=== PATIENT | female | born 1930 | race Caucasian/White ===

== ENCOUNTER 2017-01-06 09:37 | Inpatient (IN) | payer OTHER ==
[~2017-01-06] VITALS: Ht 152.4 cm; Wt 65.3 kg
[~2017-01-06 09:37] MED LIST: ANT12.5 PO; ASPIR 8181 MG PO; ATENOLOL50 MG PO; CLONIDINE HCL0.1 MG PO; HUMULIN 70/303 ML SQ; LOSARTAN POTASS1 TAB PO; LYRICA50 M1 PO; MAC100 PO; MECLIZINE HYDRO25 M1 PO; MEVACOR40 MG PO; NOR10T PO; [UNRECOGNIZED DRUG - OTHER] PO
[2017-01-06 10:51] LABS: BASOPHIL % 0.5 % (0-2); PLATELET COUNT 199 x10^3mcL (130-400); RED CELL DISTRIBUTION WIDTH 13.6 % (11.5-14.5)
[2017-01-06 11:04] LABS: CALCIUM 9.3 mg/dL (8.5-10.1); CHLORIDE SERUM 102 mmol/L (98-107); CREATININE SERUM 0.7 mg/dL (0.6-1.0); GLUCOSE SERUM 167 mg/dL (74-106); POTASSIUM SERUM 3.9 mmol/L (3.5-5.1); SODIUM SERUM 138 mmol/L (136-145)
[2017-01-06 11:08] LABS: UA SPECIFIC GRAVITY 1.015 (1.005-1.035); microscopic required? YES; urine erythrocyte TRACE (NEGATIVE)
[2017-01-06 11:16] LABS: ALBUMIN 3.4 g/dL (3.4-5.0); ALKALINE PHOSPHATASE 70 U/L (46-116); ALT/SGPT 23 U/L (14-59); AST/SGOT 24 U/L (15-37); TOTAL PROTEIN, SERUM 6.8 g/dL (6.4-8.2)
[2017-01-06 11:20] LABS: CK-MB 2.3 ng/mL (0-3.6)
[2017-01-06] MEDS ORDERED: LOSARTAN POTASS1 TA6 PO (12:35)
[2017-01-06] MEDS ORDERED: GABAPENTIN100 M2 (12:36)
[2017-01-06] MEDS ORDERED: CARVEDILOL3.125 M1 PO (12:36)
[2017-01-06 14:52] LABS: T3 TOTAL 1.11 ng/mL
[2017-01-06 15:11] VITALS: BP 173/63
[2017-01-06 15:50] LABS: FREE T4 1.43 ng/dL (0.76-1.46); FREE THYROXINE INDEX 4.2 ug/dL (1.4-4.5); T4(THYROXINE) 11.3 ug/dL (4.7-13.3)
[2017-01-06 15:55] LABS: MAGNESIUM 1.7 mg/dL (1.8-2.4); PHOSPHOROUS 3.7 mg/dL (2.5-4.9)
[2017-01-06 16:02] LABS: CHOLESTEROL/HDL RATIO 1.6
[2017-01-06 21:04] VITALS: BP 125/71
[2017-01-07 04:19] LABS: CALCIUM 8.7 mg/dL (8.5-10.1); CHLORIDE SERUM 102 mmol/L (98-107); CREATININE SERUM 0.7 mg/dL (0.6-1.0); GLUCOSE SERUM 121 mg/dL (74-106); MAGNESIUM 2.1 mg/dL (1.8-2.4); PHOSPHOROUS 3.7 mg/dL (2.5-4.9); POTASSIUM SERUM 3.6 mmol/L (3.5-5.1); SODIUM SERUM 137 mmol/L (136-145)
[2017-01-07 04:38] LABS: BASOPHIL % 0.5 % (0-2); PLATELET COUNT 190 x10^3mcL (130-400); RED CELL DISTRIBUTION WIDTH 12.9 % (11.5-14.5)
[2017-01-07 05:15] VITALS: BP 116/56
[2017-01-07 09:30] VITALS: BP 165/53
[2017-01-07 13:55] VITALS: BP 161/49
[2017-01-07 18:02] VITALS: BP 158/47
[2017-01-07 22:32] VITALS: BP 138/49
[2017-01-08 05:34] VITALS: BP 156/48
[2017-01-08 07:16] LABS: BASOPHIL % 0.4 % (0-2); PLATELET COUNT 185 x10^3mcL (130-400); RED CELL DISTRIBUTION WIDTH 13.8 % (11.5-14.5)
[2017-01-08 07:24] LABS: CALCIUM 8.9 mg/dL (8.5-10.1); CARBON DIOXIDE 25.3 mmol/L (21-32); CHLORIDE SERUM 104 mmol/L (98-107); CREATININE SERUM 0.6 mg/dL (0.6-1.0); GLUCOSE SERUM 90 mg/dL (74-106); POTASSIUM SERUM 3.7 mmol/L (3.5-5.1); SODIUM SERUM 138 mmol/L (136-145)
[2017-01-08 09:42] VITALS: BP 141/63
[2017-01-08] MEDS ORDERED: LAC PO (09:47)
[2017-01-08] MEDS ORDERED: BACTRIM DS1 TAB PO (09:49)
== END 2017-01-08 16:43 | disposition home or self-care (01) | DRG 637 ==
LOC: ED 09:37 → DU 13:34
PROVIDERS: Emergency Medicine; ADMIT Family Medicine
DX: E11.649 Type 2 diabetes mellitus with hypoglycemia without coma (principal); I50.43 Acute on chronic combined systolic (congestive) and diastolic (congestive) heart failure; N39.0 Urinary tract infection, site not specified; D68.69 Other thrombophilia; N17.0 Acute kidney failure with tubular necrosis; E11.51 Type 2 diabetes mellitus with diabetic peripheral angiopathy without gangrene; E11.65 Type 2 diabetes mellitus with hyperglycemia; E83.42 Hypomagnesemia; I11.0 Hypertensive heart disease with heart failure; I35.1 Nonrheumatic aortic (valve) insufficiency; I34.0 Nonrheumatic mitral (valve) insufficiency; I36.1 Nonrheumatic tricuspid (valve) insufficiency; I65.22 Occlusion and stenosis of left carotid artery; I45.10 Unspecified right bundle-branch block; K72.90 Hepatic failure, unspecified without coma; Z79.82 Long term (current) use of aspirin; Z79.4 Long term (current) use of insulin; Z68.28 Body mass index [BMI] 28.0-28.9, adult; Z95.1 Presence of aortocoronary bypass graft; Z87.891 Personal history of nicotine dependence
CPT/HCPCS: 82962; 83880; 84439; 97110-GP; 97116-GP; 97530-GP; B4164; G0480; J0360; J0696; J1815; J3475; J7030; Q0092

== ENCOUNTER 2017-04-07 11:10 | Observation (INO) | payer OTHER ==
[~2017-04-07] VITALS: Ht 154.9 cm; Wt 65.5 kg
[~2017-04-07 11:10] MED LIST changes: +BACTRIM DS1 TAB PO; +CARVEDILOL3.125 M1 PO; +GABAPENTIN100 M2 PO; +LAC PO; +LOSARTAN POTASS1 TA6 PO
[2017-04-07 13:32] LABS: BASOPHIL % 0.4 % (0-2); PLATELET COUNT 204 x10^3mcL (130-400); RED CELL DISTRIBUTION WIDTH 14.4 % (11.5-14.5)
[2017-04-07 13:46] LABS: CALCIUM 9.2 mg/dL (8.5-10.1); CARBON DIOXIDE 31.6 mmol/L (21-32); CHLORIDE SERUM 98 mmol/L (98-107); CREATININE SERUM 0.7 mg/dL (0.6-1.0); GLUCOSE SERUM 177 mg/dL (74-106); POTASSIUM SERUM 3.6 mmol/L (3.5-5.1); SODIUM SERUM 134 mmol/L (136-145)
[2017-04-07 13:50] LABS: ALBUMIN 3.6 g/dL (3.4-5.0); ALKALINE PHOSPHATASE 61 U/L (46-116); ALT/SGPT 28 U/L (14-59); AST/SGOT 24 U/L (15-37); BILIRUBIN TOTAL 1.3 mg/dL (0.20-1.00); TOTAL PROTEIN, SERUM 7.1 g/dL (6.4-8.2)
[2017-04-07 16:39] LABS: microscopic required? NO
[2017-04-07 16:53] LABS: urine erythrocyte NEGATIVE (NEGATIVE)
[2017-04-07 17:05] VITALS: BP 176/66
[2017-04-07 17:29] LABS: CHOLESTEROL/HDL RATIO 2.1; MAGNESIUM 1.8 mg/dL (1.8-2.4); PHOSPHOROUS 2.9 mg/dL (2.5-4.9)
[2017-04-07 17:36] LABS: FREE T4 1.36 ng/dL (0.76-1.46); FREE THYROXINE INDEX 4.3 ug/dL (1.4-4.5); T4(THYROXINE) 11.4 ug/dL (4.7-13.3)
[2017-04-07 17:58] LABS: T3 TOTAL 0.91 ng/mL
[2017-04-07 22:02] VITALS: BP 142/80
[2017-04-08 05:28] VITALS: BP 131/57
[2017-04-08 06:30] LABS: BASOPHIL % 0.2 % (0-2); PLATELET COUNT 218 x10^3mcL (130-400); RED CELL DISTRIBUTION WIDTH 14.4 % (11.5-14.5)
[2017-04-08 06:42] LABS: CALCIUM 8.9 mg/dL (8.5-10.1); CARBON DIOXIDE 31.1 mmol/L (21-32); CHLORIDE SERUM 97 mmol/L (98-107); CREATININE SERUM 0.6 mg/dL (0.6-1.0); GLUCOSE SERUM 96 mg/dL (74-106); MAGNESIUM 1.7 mg/dL (1.8-2.4); PHOSPHOROUS 3.7 mg/dL (2.5-4.9); SODIUM SERUM 132 mmol/L (136-145)
[2017-04-08 10:00] VITALS: BP 146/51
[2017-04-08] MEDS ORDERED: MEV20 PO (12:31)
[2017-04-08 12:40] VITALS: BP 146/51
== END 2017-04-08 13:46 | disposition home or self-care (01) | DRG 149 ==
LOC: ED 11:10 → DU 15:31
PROVIDERS: ADMIT Family Medicine
DX: H81.10 Benign paroxysmal vertigo, unspecified ear (principal); I50.43 Acute on chronic combined systolic (congestive) and diastolic (congestive) heart failure; E87.1 Hypo-osmolality and hyponatremia; I11.0 Hypertensive heart disease with heart failure; I16.0 Hypertensive urgency; E11.65 Type 2 diabetes mellitus with hyperglycemia; E11.42 Type 2 diabetes mellitus with diabetic polyneuropathy; E78.5 Hyperlipidemia, unspecified; Z68.27 Body mass index [BMI] 27.0-27.9, adult; Z87.891 Personal history of nicotine dependence; Z95.1 Presence of aortocoronary bypass graft; Z95.0 Presence of cardiac pacemaker
CPT/HCPCS: 82962; 83880; 84439; G0378; J1815; J3475; J7040; J8597; Q0092

== ENCOUNTER 2019-03-17 12:55 | Inpatient (IN) | payer OTHER ==
[~2019-03-17] VITALS: Ht 162.6 cm; Wt 64.4 kg
[~2019-03-17 12:55] MED LIST changes: +MEV20 PO
[2019-03-17 12:58] VITALS: Ht 162.6 cm; Wt 64.4 kg
--- NOTE | 2019-03-17 13:11 | NUR ---
PT BIB [facility] C/C GENERALIZE WEAKNESS PER MEDIC MECHANICAL FALL LAST NIGHT UNABLE TO GET UP FROM FLOOR PLACED ON MONITOR DR LALA AT BEDSIDE TO [facility]
--- NOTE | 2019-03-17 13:34 | NUR ---
XRAY AT BEDSIDE
[2019-03-17 14:19] LABS: PLATELET COUNT 201 x10^3mcL (130-400)
[2019-03-17 14:23] LABS: CALCIUM 9.2 mg/dL (8.5-10.1); CARBON DIOXIDE 28.7 mmol/L (21-32); CHLORIDE SERUM 98 mmol/L (98-107); CREATININE SERUM 0.6 mg/dL (0.6-1.0); GLUCOSE SERUM 245 mg/dL (74-106); POTASSIUM SERUM 3.7 mmol/L (3.5-5.1); SODIUM SERUM 134 mmol/L (136-145)
[2019-03-17 14:27] LABS: ALKALINE PHOSPHATASE 76 U/L (46-116); ALT/SGPT 43 U/L (14-59); AST/SGOT 37 U/L (15-37); BILIRUBIN TOTAL 2.6 mg/dL (0.20-1.00); TOTAL PROTEIN, SERUM 6.5 g/dL (6.4-8.2)
[2019-03-17 14:28] LABS: RED CELL DISTRIBUTION WIDTH 15.8 % (11.5-14.5)
[2019-03-17 14:33] LABS: ALBUMIN 3.3 g/dL (3.4-5.0)
--- NOTE | 2019-03-17 14:43 | NUR ---
TAKEN TO RADIOLOGY FOR CT
[2019-03-17 14:59] LABS: UA SPECIFIC GRAVITY 1.015 (1.005-1.035); microscopic required? YES; urine erythrocyte 1+ (NEGATIVE)
[2019-03-17 15:06] LABS: BAND NEUTROPHIL 0 % (0-10); BASOPHIL 0 % (0-2); MONOCYTE 2 % (0-7); SEGMENTED NEUTROPHILS 97 % (37-75)
[2019-03-17 15:09] LABS: rbc morphology (normal/abnorm) ABNORMAL (NORMAL)
--- NOTE | 2019-03-17 15:12 | NUR ---
BACK FROM CT
[2019-03-17 15:13] LABS: PLATELET MORPHOLOGY PLATELETS DECREASED
--- NOTE | 2019-03-17 15:48 | NUR ---
PT SLEEPING FAMILY AT BEDSIDE
--- NOTE | 2019-03-17 16:06 | NUR ---
PLEASE ENTER FULL NAMES OF HYDROELECTRIC MECHANIC/RN Patient data collected by (HYDROELECTRIC MECHANIC):COOPER FERNANDEZ Assessment reviewed and completed by (RN):JAMIE HERCULES
--- NOTE | 2019-03-17 16:57 | NUR ---
DR LALA AT BEDSIDE TO GO OVER PLAN OF CARE
[2019-03-17] MEDS ORDERED: PREDNISONE2.5 MG PO (16:58)
[2019-03-17] MEDS ORDERED: HYZAAR1 TA2 PO (16:59)
[2019-03-17] MEDS ORDERED: CARVEDILOL6.25 M1 PO (17:00)
--- NOTE | 2019-03-17 17:39 | NUR ---
DINNER TRAY GIVEN
--- NOTE | 2019-03-17 18:32 | NUR ---
PT RELAXED AWAITING FOR ROOM FAMILY AT BEDSIDE
[2019-03-17] MEDS ORDERED: HUMULIN R100 U/1 M1 (18:36)
--- NOTE | 2019-03-17 19:16 | NUR ---
RECEIVED REPORT FROM COOPER FERNANDEZ RN, I WILL RESUME FURTHER CARE OF THIS PATIENT.
--- NOTE | 2019-03-17 19:30 | NUR ---
PT LAYING IN POSITION OF COMFORT IN SEMI LYON'S, PT IS AAOX3, UNABLE TO RECALL TO CORRECT YEAR, NO DISTRESS NOTED, RESP E/U. PT IN FULL CM, NSR, VSS. BED IN LOWEST POSITION, SIDERAIL X2 UP FOR SAFTETY, AND CALL RILEY WITHIN REACH. CHAUNCEY AT THE BEDSIDE. WILL CONT TO MONITOR.
[2019-03-17 19:49] LABS: MAGNESIUM 1.8 mg/dL (1.8-2.4); PHOSPHOROUS 2.8 mg/dL (2.5-4.9)
--- NOTE | 2019-03-17 19:58 | NUR ---
MEDICATED OPT PER MD ORDERS, SEE EMAR. PT VEBRALIZED UNDERSTANDING IF MEDICATION.
--- NOTE | 2019-03-17 20:40 | NUR ---
CALLED [facility] THOMAS UPSTAIRS TO GIVE REPORT AND SHE TOLD ME "IM IN THE MIDDLE FO A MED PASS AND I HAVE ANOTHER ONE AFTER, LET ME CALL YOU BACK IN 10 MINUTES."
--- NOTE | 2019-03-17 20:47 | NUR ---
ROLAND THOMAS RESOURCE NURSE ON [facility] CALLED BACK. GAVE REPORT TO HIM ON PATIENT.
[2019-03-17 21:22] VITALS: BP 137/55
--- NOTE | 2019-03-17 21:33 | NUR ---
RECEIVED PT FROM ER, PT ADMIT FOR NEAR SYNCOPE, SEPSIS, DEHYDRATION. PT IS A/O X2, ONLY NAME AND PLACE, LUNG SOUND CLEAR BILATERAL, NO COUGH, NO SOB, PT IS ON 2L/MIN O2 VIA NC. PO2 98%, PT DENY ANY CHEST PAIN OR DISCOMFORT, PT HAS A PACEMAKER. BOWEL SOUND PRESENT ALL 4 QUADRANTS, NO DISTENTION, NO TENDER. PEDAL PULSE PRESENT BOTH FEET, NO EDEMA, PT DENY SHE HAS FALL. SHE STATE SHE LET HER SELF IN THE FLOOR, DENY ANY BODY PAIN AT THIS MOMENT, ALL 4 EXTREMITIES FULL ROM. IV AT LEFT AC, NO LEAKING, NO INFILTRATION. ALL ADLS ASSIST, ALL NEED MET, CALL LIGHT IN REACH, WILL CONTINUE TO MONITOR.
--- NOTE | 2019-03-17 21:40 | NUR ---
RECIVED REPORT FROM MARY THOMAS, ALL CONCERNS ADDRESSED. PATIENT'S IV TO LAC IS INFUSING WITHOUT ERYTHEMA OR INFILTRATION. DENIES PAIN. NO SOB NOTED ON 2L NC. USE OF CALL LIGHT REINFORCED. BED LOCKED AND IN LOWEST POSIITON.
--- NOTE | 2019-03-18 | NUR ---
PATIENT'S EYES ARE CLOSED, BREATHS EVEN ON 2L NC. CALL LIGHT WITHIN REACH.
[2019-03-18 05:51] VITALS: BP 144/52
--- NOTE | 2019-03-18 06:14 | NUR ---
PATIENT'S BLOOD SUGAR WAS 66 THIS MORNING. AFTER DRINKING TWO CUPS OF LIS;E JUICE HER SUGAR INCREASED TO 113. PATIENT DENIES PAIN. IV IS PATENT AND INTACT. CALL LIGHT WITHIN REACH. WILL ENDORSE CARE TO MORNING NURSE.
--- NOTE | 2019-03-18 08:15 | NUR ---
A/OX3, REORIENTED NEEDED, [place] NOTED. DENIES HEADACHE/DIZZINESS. DENIES CP. LUNGS CTA, NO RESP DISTRESS NOTED ON 2L NC, BREATHING E/U. PERIPHERAL PULSES PALAPBLE, NO EDEMA. BOWEL SOUNDS ACTIVE, LAST BM YESTERDAY, DENIES N/V. INCTONINENT AT TIMES, DENIES DIFFICULTY/PAIN UPON VOIDING. REPORTS USING WALKER AT HOME BUT FEELING VERY WEAK. IV ACCESS TO LAC SITE WNL, NO REDNESS/SWELLING. CALL LIGHT WIHTIN REACH AND REINFORCED ON HOW TO USE. ASSISTED PATIENT TO SIT UP AT EDGE OF BED TO EAT BREAKFAST MEAL. WILL CONT TO MONITOR.
[2019-03-18 08:34] VITALS: BP 177/55
--- NOTE | 2019-03-18 09:20 | NUR ---
PER DYNAMITE PACKING MACHINE FEEDER PATIENT WENT ON BSC AND HAD WATERY/MESSY STOOL WITH BM. O2 SAT 100% ON 2L NC, NC REMOVED, O2 SAT 98% ON RA, BREATHING E/U. INFORMED PATIENT TO CALL IF FEELING SOB, WILL CONT TO MONITOR O2 SAT. ASSISTED PATIENT BACK IN BED COMFORTABLY, GENERALIZED WEAKNESS NOTED. SON AT BEDSIDE, CALL LIGHT WITHIN REACH.
[2019-03-18 10:57] VITALS: BP 159/54
[2019-03-18] MEDS ORDERED: PREDNISONE1 MG PO (11:48)
[2019-03-18] MEDS ORDERED: LOSARTAN POTASS1 TAB PO (11:49)
--- NOTE | 2019-03-18 11:50 | NUR ---
DR HALLMAN AT BEDSIDE SPOKE WITH PATIENT AND DAUGHTER. MADE DR HALLMAN AWARE OF BLOOD PRESSURE AND PATIENTS HOME MEDICATIONS TO RECONCILE. MEDICATION LIST UPDATED BY DAUGHTER. HOME MEDS TO CONTINUE DURING HOSPITAL STAY.
[2019-03-18 17:08] VITALS: BP 168/60
--- NOTE | 2019-03-18 19:30 | NUR ---
RECIEVED PATIENT AT START OF SHIFT A/O TO SELF, SITUATION, AND PLACE, BUT NOT TIME. NO SOB ON RA. BREATHS REGULAR AND EVEN. IV TO LAC IS INFUSING WITHOUT ERYTHEMA OR INFILTRATION. PATIENT DENIES PAIN. BED LOCKED AND IN LOWEST POSIITON. CALL LIGHT AND BEDSIDE TABLE WITHIN REACH.
[2019-03-18 19:50] LABS: BASOPHIL % 0.5 % (0-2); PLATELET COUNT 185 x10^3mcL (130-400)
[2019-03-18 19:51] LABS: RED CELL DISTRIBUTION WIDTH 16.1 % (11.5-14.5)
[2019-03-18 20:01] LABS: CARBON DIOXIDE 23.9 mmol/L (21-32); CHLORIDE SERUM 104 mmol/L (98-107); CREATININE SERUM 0.7 mg/dL (0.6-1.0); GLUCOSE SERUM 199 mg/dL (74-106); POTASSIUM SERUM 3.8 mmol/L (3.5-5.1); SODIUM SERUM 135 mmol/L (136-145)
[2019-03-18 20:36] VITALS: BP 152/60
--- NOTE | 2019-03-18 21:30 | NUR ---
PATIENT GOT UP TO BEDSIDE COMMODE TO URINATE AND GOT BACK INTO BED WITH ASSISTANCE.
--- NOTE | 2019-03-19 00:45 | NUR ---
PATIENT'S EYES ARE CLOSED, BREATHS EVEN AND REGULAR. NO SIGNS OF DISTRESS. IV INFUSING WITHOUT ERYTHEMA OR INFILTRATION. CALL LIGHT WITHIN REACH.
[2019-03-19 05:25] VITALS: BP 173/63
--- NOTE | 2019-03-19 06:16 | NUR ---
NO SIGNIFICANT EVENTS THIS SHIFT. PATIENT DENIES PAIN. NO SOB. IV INFUSING WITHOUT ERYTHEMA OR INFILTRATION. BED LOCKED AND IN LOWETS POSIITON. CALL LIGHT WITHIN REACH. WILL ENDORSE CARE TO MORNING NURSE.
[2019-03-19 06:50] LABS: BASOPHIL % 0.3 % (0-2); PLATELET COUNT 159 x10^3mcL (130-400)
[2019-03-19 07:07] LABS: RED CELL DISTRIBUTION WIDTH 15.8 % (11.5-14.5)
[2019-03-19 07:10] LABS: ALKALINE PHOSPHATASE 57 U/L (46-116); ALT/SGPT 28 U/L (14-59); AST/SGOT 21 U/L (15-37); BILIRUBIN TOTAL 1.24 mg/dL (0.20-1.00); CALCIUM 8.2 mg/dL (8.5-10.1); CHLORIDE SERUM 106 mmol/L (98-107); CREATININE SERUM 0.5 mg/dL (0.6-1.0); GLUCOSE SERUM 98 mg/dL (74-106); POTASSIUM SERUM 3.5 mmol/L (3.5-5.1); SODIUM SERUM 140 mmol/L (136-145)
[2019-03-19 07:12] LABS: ALBUMIN 2.4 g/dL (3.4-5.0); TOTAL PROTEIN, SERUM 5.2 g/dL (6.4-8.2)
--- NOTE | 2019-03-19 07:30 | NUR ---
PT ENDORSE TO ME THIS MORNING, LAYING IN BED RESTING. AA/O X4, BREATHING EVEN AND UNLABORED ON RA, NO ACUTE RESP DISTRESS OR SOB NOTED. MEDSURG/ DENIES ANY CP OR PRESSURE. BOWEL SOUNDS ACTIVE IN ALL FOUR QUADS, VOIDS FREELY/ BEDPAIN, BSC NEEDED. GEN WEAKNESS IS ABLE TO GET UP OUT OF BED WITH OUT ASSIST,KNOWS TO CALL FOR ASSIST. IV TO THE LAC INTACT AND PATEN/ NO REDNESS OR SWELLING NOTED. WILL CONTINUE TO MONITOR.
[2019-03-19 09:14] VITALS: BP 165/60
--- NOTE | 2019-03-19 16:20 | NUR ---
EXPLAINED DISCHARGE INSTRUCTIONS, CONTINUED MEDS AND FOLLOW UP APPT THEY MUST MAKE WITH IN TWO WEEKS, THEY BOTH AGREED, PT SIGNED ALL DOCUMENTS. IV TO THE LFA REMOVED, CATHETHER TIP INTACT, NO REDNESS OR SWELLING NOTED. PT WILL CALL NURSING STATION ONCE SHE IS READY.
== END 2019-03-19 16:30 | disposition home health service (06) | DRG 312 ==
LOC: ED 12:55 → MU 19:57
PROVIDERS: Emergency Medicine; Internal Medicine; ADMIT Internal Medicine Pulmonary Disease
DX: R55 Syncope and collapse (principal); G93.41 Metabolic encephalopathy; E86.0 Dehydration; E11.65 Type 2 diabetes mellitus with hyperglycemia; I25.10 Atherosclerotic heart disease of native coronary artery without angina pectoris; E78.5 Hyperlipidemia, unspecified; I10 Essential (primary) hypertension; R29.6 Repeated falls; Z95.0 Presence of cardiac pacemaker; Z68.25 Body mass index [BMI] 25.0-25.9, adult; Z95.1 Presence of aortocoronary bypass graft; Z79.84 Long term (current) use of oral hypoglycemic drugs
CPT/HCPCS: 82962; G0378; J0696; J1815; J7030; J7512; Q0092